=== PATIENT | female | born 1945 | race Caucasian/White ===

== ENCOUNTER 2017-05-27 02:34 | Inpatient (IN) ==
[2017-05-27] MEDS ORDERED: REGLAN ONE (05:38)
[2017-05-27] MEDS ORDERED: KEFZOL 1 GM/D5W 1 GM/50 ML IVPB ONE (05:38)
[2017-05-27] MEDS ORDERED: LR 1,000 ML ONE ×2 (05:38→09:48)
[2017-05-27] MEDS ORDERED: PEPCID ONE (05:38)
[2017-05-27] MEDS ORDERED: ZOFRAN ONE (06:23)
[2017-05-27] MEDS ORDERED: NORCURON ONE (06:23)
[2017-05-27] MEDS ORDERED: XYLOCAINE-MPF 2% ONE (06:23)
[2017-05-27] MEDS ORDERED: NEO-SYNEPHRINE ONE (06:23)
[2017-05-27] MEDS ORDERED: QUELICIN (DOSE) ONE (06:23)
[2017-05-27] MEDS ORDERED: SODIUM CHLORIDE 0.9% 10 ML ONE (06:23)
[2017-05-27] MEDS ORDERED: DIPRIVAN 1% ONE (06:29)
[2017-05-27] MEDS ORDERED: VERSED ONE ×2 (06:30→06:36)
[2017-05-27] MEDS ORDERED: FENTANYL ONE (06:30)
[2017-05-27] MEDS ORDERED: HEPARIN ONE (06:38)
[2017-05-27] MEDS ORDERED: NS 500 ML ONE (06:39)
[2017-05-27] MEDS ORDERED: XYLOCAINE 1% ONE (06:39)
[2017-05-27] MEDS ORDERED: NS 1,000 ML ONE (06:39)
[2017-05-27] MEDS ORDERED: XYLOCAINE 1%/EPI 1:100,000 ONE (06:54)
[2017-05-27] MEDS ORDERED: HEPARIN (DOSE) ONE (07:45)
[2017-05-27] MEDS ORDERED: ATROPINE ONE (07:46)
[2017-05-27] MEDS ORDERED: NEOSTIGMINE ONE (08:38)
[2017-05-27] MEDS ORDERED: ROBINUL ONE (08:38)
[2017-05-27] MEDS ORDERED: LABETALOL ONE (09:20)
[2017-05-27] MEDS ORDERED: LR 1,000 ML IV SCH (10:00)
--- NOTE | 2017-05-27 10:09 | OPERATIVE NOTE ---
PROCEDURE DATE: 05/27/2017 PREOPERATIVE DIAGNOSIS: Severe stenosis at the takeoff of the right internal carotid artery, asymptomatic. POSTOPERATIVE DIAGNOSIS: Severe stenosis at the takeoff of the right internal carotid artery, asymptomatic. PRINCIPAL PROCEDURE: Right carotid endarterectomy with patch angioplasty. SURGEON: Erin Agee MD. FIRST ASSISTANTS: Dr. Sonny Barragan and Dr. Aron Valdes MD. ANESTHESIA: General in addition to local anesthetic. ESTIMATED BLOOD LOSS: 150 mL. DRAINS: A TLS drain, right neck. INDICATIONS: Ms. Aisha Pagan is a 72-year-old, white female who recently underwent a noninvasive carotid duplex study which documented the severe stenosis which we felt was hemodynamically significant at the takeoff of the right internal carotid artery. She has had some eye symptoms but we felt this stenosis was mostly asymptomatic but carotid endarterectomy was recommended. FINDINGS: She did have a hemodynamically significant lesion at the takeoff of the right internal carotid artery. She had calcified plaque in this area. It feathered nicely distally. Her vessels were small and we did do a patch angioplasty. We did use a shunt during the procedure. We identified the hypoglossal and vagus nerves, and they were preserved. DESCRIPTION OF PROCEDURE: The patient was brought to the operating room, placed supine, received general anesthesia, was intubated. She was placed in the reverse Trendelenburg. Her head was turned to the left, and her right neck was prepped and draped within a sterile field. She received Ancef prophylactically and we used an Ioban on the skin. A Najera catheter tube was placed at the request of anesthesia. We made an oblique incision along the anterior border of the right sternocleidomastoid muscle using a 15 blade scalpel. This incision was carried down through the skin and subcutaneous tissue to the platysma muscle which we incised using cautery. We mobilized the sternocleidomastoid muscle laterally with the internal jugular vein. We ligated the facial branch of the internal jugular vein between 3-0 silk ligatures. We dissected the common carotid artery proximally to distally, and identified its branches, the external and internal carotid arteries. We isolated the common carotid artery with a large red vessel loop and its branches with small red vessel loops. We made sure that we dissected a segment of the internal carotid artery past the palpable plaque. We identified the hypoglossal nerve. The bifurcation was fairly high in the neck. We used a Gelpi for self-retaining retraction. We also had handheld retraction superiorly. The patient was given 5000 units of IV heparin. We stopped flow through the common carotid artery and its branches using our vessel loops. We made an arteriotomy on lateral aspect of the distal common carotid artery with an 11 blade scalpel. Then Fitzpatrick scissors were used to make this arteriotomy through the plaque into the internal carotid artery. We placed a shunt initially proximally and then into the internal carotid artery. We used a shunt clamp on the internal carotid artery and we controlled the shunt proximally with the vessel loop. Once the shunt was in, we used a [place] elevator to remove the plaque again proximal and then had it feather distally. It did feather nicely. We felt we had no loose debris in the area. We irrigated the arteriotomy with heparin saline and used a 0.8 cm width patch to close our arteriotomy site. We began at the apex and then came around the heel of the patch using a double-arm 6-0 Prolene stitch. Before completing closure of our arteriotomy, we removed the shunt and allowed the internal carotid artery to back bleed, external carotid artery to back bleed, and then we flushed the common through the remaining arteriotomy site. We completed the closure of the arteriotomy using our patch and a 6-0 Prolene. We reestablished flow through the external carotid artery and then into the internal carotid artery. I did have to use 1 single arm 6-0 Prolene stitch at our arteriotomy site to control bleeding. Otherwise, no other stitches had to be taken. We had a palpable pulse distal to our arteriotomy site in the internal carotid artery. We chose to use a TLS drain. It was brought out through a separate stab incision at the base of the right neck. We secured this drain in place with a 3-0 silk stitch. We reapproximated the platysma muscle with a running 2-0 Vicryl stitch. The skin was closed with a 4-0 Monocryl subcuticular stitch. Dressings were applied. Plans are to awaken her in the operating room, send her to recovery, and then have her hospitalized overnight in our ICU. She seemed to tolerate the procedure well. cc: Erin Agee MD
[2017-05-27] MEDS: NORCO-5 PO PRN ×2 (11:18→15:51)
[2017-05-27] MEDS: ZOFRAN IV PRN (11:49)
[2017-05-27] MEDS: HYZAAR 50/12.5 MG PO SCH (13:07)
[2017-05-27] MEDS ORDERED: NORCO-7.5 PO PRN (17:03)
[2017-05-27] MEDS: MORPHINE IV PRN ×2 (17:42→21:26)
[2017-05-27] MEDS: LR 1,000 ML IV SCH (20:43)
[2017-05-27] MEDS ORDERED: ZOCOR PO SCH (21:00)
[2017-05-28] MEDS: MORPHINE IV PRN ×2 (01:31→05:41)
[2017-05-28] MEDS: ZOFRAN IV PRN (01:32)
[2017-05-28] MEDS: SYNTHROID PO SCH ×3 (06:23→08:21)
[2017-05-28] MEDS ORDERED: PRILOSEC PO SCH (07:00)
--- NOTE | 2017-05-28 07:59 | PROGRESS NOTE ---
DATE: 05/28/2017 Aisha Pagan is a 72-year-old, white female who is now postop day 1 from a right carotid endarterectomy with patch angioplasty. A TLS drain was placed at the time of surgery. We did use a shunt. After surgery, she went to the recovery room and then has been hospitalized overnight in the ICU. She does have some swelling involving the right neck consistent with a hematoma in the area of surgery. We feel that it is not large enough to have to take her back to surgery to have it evacuated. I removed the TLS drain this morning. She has had some nausea overnight. It may be related to her pain medicine. She complains of some pain on the posterior aspect of her right scalp. Her incision is intact and she has no neurologic deficits. We have also had to watch her blood pressure. It has been elevated. This morning, her heart rate is 88 and her blood pressure is 126/57. O2 saturation is 95%. She is voiding without difficulty and she is afebrile. PLAN: I removed her TLS drain. We will transfer her to the floor. We will advance her diet and increase her activity. cc: Erin Agee MD
[2017-05-28] MEDS: HYZAAR 50/12.5 MG PO SCH (08:19)
[2017-05-28] MEDS ORDERED: ASPIRIN PO SCH ×2 (09:00)
[2017-05-28] MEDS: LR 1,000 ML IV SCH (15:46)
[2017-05-28] MEDS ORDERED: ZOFRAN PO ONE (18:13)
[2017-05-28] MEDS ORDERED: ZOFRAN PO PRN (18:46)
[2017-05-28] MEDS: NORCO-7.5 PO PRN (20:24)
[2017-05-28] MEDS ORDERED: ZOCOR PO SCH (21:00)
[2017-05-29] MEDS: NORCO-7.5 PO PRN (02:59)
[2017-05-29] MEDS: SYNTHROID PO SCH ×2 (05:40→07:41)
[2017-05-29] MEDS: PRILOSEC PO SCH ×2 (05:40→07:41)
[2017-05-29] MEDS ORDERED: HYZAAR 50/12.5 MG PO SCH (09:00)
[2017-05-29] MEDS ORDERED: ASPIRIN PO SCH (09:00)
[2017-05-29 10:59] VITALS: BP 127/43
--- NOTE | 2017-05-29 14:10 | DISCHARGE SUMMARY ---
ADMISSION DATE: 05/27/2017 DISCHARGE DATE: 05/29/2017 DATE OF ADMISSION: 05/27/2017. DATE OF DISCHARGE: 05/29/2017. ADMITTING DIAGNOSIS: Carotid stenosis. DISCHARGE DIAGNOSIS: Carotid stenosis. PRINCIPAL PROCEDURE: Right carotid endarterectomy with patch angioplasty on 05/27/2017. DISCHARGE DISABILITIES: Full. DISCHARGE MEDICATIONS: She is to return to her home medications. DISCHARGE DIET: Regular. DISCHARGE DISPOSITION: She will return to our outpatient office in 10-14 days. HOSPITAL COURSE: Ms. Aisha Pagan is a 72-year-old, white female who recently underwent carotid studies, which suggested a hemodynamically significant lesion at the takeoff of the right internal carotid artery and a right carotid endarterectomy was recommended. We felt that this stenosis was probably asymptomatic. She was admitted on the day of surgery and underwent a right carotid endarterectomy with patch angioplasty. We used a shunt at the time of surgery and we did a patch angioplasty. We left a TLS drain and after surgery, she went to the recovery room and then to the ICU overnight. Her postoperative convalescence was complicated by a hematoma in the area of the incision, but we felt that we did not have to take her back to surgery to evacuate this hematoma. It was not large enough and it was fairly asymptomatic. She had no neurologic deficits and was hemodynamically stable. She went to the floor on postop day 1 and it was felt safe to discharge her to her home on postop day 2. At discharge, she was awake without evidence of any neurologic deficit. Her incision was healing well. Although, there was bruising on the right side of her neck. She was afebrile. Her heart rate was 94, blood pressure 127/43. O2 saturation was 100%. She was able to walk around the room and sit up. She will be discharged home on her regular medicine with followup in my outpatient office in 10-14 days. She knows to contact me if she has any problems. She does take an aspirin a day. cc: Erin Agee MD
== END 2017-05-29 14:20 | disposition home or self-care (01) ==
LOC: SURHOLD 02:34 → ICU 10:53 → 4N 05-28 16:38
PROVIDERS: ADMIT Surgery; ATTEND Surgery